=== PATIENT | male | born 1995 | race American Indian/Alaskan Native ===

== ENCOUNTER 2021-05-11 16:12 | Emergency (ER) | payer SELFPAY ==
[2021-05-11 16:17] VITALS: BP 124/71
--- NOTE | 2021-05-11 18:45 | Emergency Department Report ---
- General Chief complaint: Extremity Injury, Lower Stated complaint: KNEE PAIN Time Seen by Provider: 05/11/21 18:34 Source: patient Mode of arrival: Ambulatory Limitations: No Limitations - History of Present Illness Initial comments: The patient was evaluated in the emergency department for symptoms described in the history of present illness. He/she was evaluated in the context of the global COVID-19 pandemic, which necessitated consideration that the patient might be at risk for infection with the virus that causes COVID-19. Institutional protocols and algorithms that pertain to the evaluation of patients at risk for COVID-19 are in a state of rapid change based on information released by regulatory bodies including the CDC and federal and state organizations. These policies and algorithms were followed during the patient's care in the emergency department. Please note that these policies, procedures and recommendations changed on a rapid basis. 25-year-old male presents to the emergency room for left inner knee blister after using [id number] icy hot spray and menthol ointment. Patient states that he has a ACL injury and has been using the liniment/topical agent on his leg. Patient states he is up-to-date on his vaccines. MD complaint: abscess/boil Onset/Timin -: days(s) Tetanus Up to Date: yes Location: LLE Severity: moderate Severity scale (0 -10): 6 Quality: burning Consistency: constant Worsens with: none Associated symptoms: denies other symptoms - Related Data Allergies Allergy/AdvReac Type Severity Reaction Status Date / Time No Known Allergies Allergy Verified 05/11/21 16:16 Abscess Boil HPI - HPI Chief Complaint: Extremity Injury, Lower Stated Complaint: KNEE PAIN Time Seen by Provider: 05/11/21 18:34 Allergies/Adverse Reactions: Allergies Allergy/AdvReac Type Severity Reaction Status Date / Time No Known Allergies Allergy Verified 05/11/21 16:16 ED Review of Systems ROS: Stated complaint: KNEE PAIN Other details as noted in HPI Comment: All other systems reviewed and negative ED Physical Exam - General Limitations: No Limitations General appearance: alert, in no apparent distress - Head Head exam: Present: atraumatic, normocephalic - Eye Eye exam: Present: normal appearance - ENT ENT exam: Present: mucous membranes moist - Neck Neck exam: Present: normal inspection - Respiratory Respiratory exam: Present: normal lung sounds bilaterally. Absent: respiratory distress - Cardiovascular Cardiovascular Exam: Present: regular rate, normal rhythm. Absent: systolic murmur, diastolic murmur, rubs, gallop - GI/Abdominal GI/Abdominal exam: Present: soft, normal bowel sounds - Rectal Rectal exam: Present: deferred - Extremities Exam Extremities exam: Present: normal inspection - Expanded Lower Extremity Exam Left Hip exam: Present: normal inspection, full ROM Upper Leg exam: Present: normal inspection, full ROM Knee exam: Present: tenderness, swelling Lower Leg exam: Present: normal inspection, full ROM Ankle exam: Present: normal inspection, full ROM Foot/Toe exam: Present: normal inspection, full ROM Neuro vascular tendon exam: Present: no vascular compromise - Back Exam Back exam: Present: normal inspection - Neurological Exam Neurological exam: Present: alert, oriented X3 - Psychiatric Psychiatric exam: Present: normal affect, normal mood - Skin Skin exam: Present: warm, dry, intact, normal color. Absent: rash - Expanded Skin Exam Expanded Type of lesion: Present: rash Distribution of rash: LLE (Medial knee) Description of rash: Present: blisters ED Course Vital Signs 05/11/21 16:16 Temperature 97.7 F Pulse Rate 84 Respiratory 18 Rate Blood Pressure 124/71 [Right] O2 Sat by Pulse 99 Oximetry ED Medical Decision Making - Medical Decision Making 25-year-old male presents to the emergency room for left inner knee blister after using [id number] icy hot spray and menthol ointment. Patient states that he has a ACL injury and has been using the liniment/topical agent on his leg. Patient states he is up-to-date on his vaccines. Patient appears to have a contact dermatitis blisters from using the icy hot spray and the menthol ointment. Instructed patient to discontinue use of them. He can take Tylenol ibuprofen for pain. Use a nonadherent dressing and do not burst the blisters keep the skin intact as that protects from entering infection peer Critical care attestation.: If time is entered above; I have spent that time in minutes in the direct care of this critically ill patient, excluding procedure time. ED Disposition Clinical Impression: Contact dermatitis due to caustic agent Disposition: HOME / SELF CARE / HOMELESS Is pt being admited?: No Does the pt Need Aspirin: No Condition: Stable Instructions: Contact Dermatitis, [id number] Additional Instructions: Discontinue using icy hot spray and menthol ointment. Tylenol or ibuprofen for pain. Nonadherent dressing to the blisters. Try to keep the blisters intact as Apetex the skin from any infection. Follow-up with your primary care provider. Referrals: BRANDIE GIRALDO MD [Staff Physician] - 3-5 Days EDITH VAUGHN MD [Staff Physician] - 3-5 Days Forms: Work/School Release Form(ED) Time of Disposition: 18:52
== END 2021-05-11 19:09 | disposition home or self-care (01) ==
LOC: ED 16:12
DX: L25.9 Unspecified contact dermatitis, unspecified cause (principal); M25.562 Pain in left knee
CPT/HCPCS: 99281